=== PATIENT | female | born 1980 | race Caucasian/White ===

== ENCOUNTER → 2018-01-18 | Day surgery (SDC) | payer OTHER ==
[~2018-01-18] VITALS: Ht 165.1 cm; Wt 66.2 kg
[~2018-01-18] MED LIST: VITAMIN D2000 UNIT PO; VITAMIN D250000 UNIT PO
--- NOTE | 2018-01-18 11:05 | Operative Report ---
Operative/Inv Procedure Report Surgery Date: 01/18/18 Name of Procedure: Left knee arthroscopy and partial medial meniscectomy Pre-Operative Diagnosis: Left knee bucket-handle medial meniscus tear Post-Operative Diagnosis: Left knee bucket-handle medial meniscus tear Estimated Blood Loss: scant Surgeon/Gear Design Engineer: Chelsey Arredondo MD Anesthesia: laryngeal mask airway Implants: None Drains: None Specimens: None Tourniquet: 40min at 300mmHg Complications: None Condition: Stable Operative Indication: Gauri Siu is a 37-year-old female who presented to the orthopedic clinic with ongoing left medial knee pain. She under went an ACL reconstruction with medial meniscus repair approximately 5 years ago. She denies a new injury, however developed increased medial knee pain with catching, locking, and popping. Her knee intermittently swells and she has difficulty with ambulation and stairs. She was initially evaluated by her primary care doctor, who ordered x-rays and an MRI of the left knee, which showed a bucket-handle tear of the medial meniscus. Her ACL graft was intact. After discussing the risks, benefits, and alternatives to surgical intervention, Gauri has opted to proceed with left knee arthroscopy and partial medial meniscectomy. Operative/Procedure Note Note: Gauri Kathleen arrived at [facility] on 01/18/2018. She was met in the preoperative area, where her operative extremity was marked and her past medical history was reviewed. The patient was then taken into the operating room and placed supine on the operating room table. A time-out procedure was performed and the patient, the operative extremity, and the planned procedure were verified. The patient was induced under general anesthesia and IV cefazolin was administered for antibiotic prophylaxis. A nonsterile tourniquet was applied to the left upper thigh, and the left lower extremity was prepped and draped in the usual sterile fashion. The left leg was elevated and the tourniquet raised to 300mmHg. The knee was taken into flexion and a standard inferolateral portal was created using a #11 blade scalpel. The camera was introduced into the joint and the knee taken into extension. The patellofemoral joint was in good condition without cartilage wear. No loose bodies were noted in the medial or lateral gutters. The knee was taken in flexion and an anteromedial portal was created after localization with a spinal needle. A diagnostic knee arthroscopy revealed a bucket handle tear of the medial meniscus, with the fragment flipped anterior. The ACL graft was noted to be in good condition in the notch, with good tension. The knee was taken into the [id number] position to evaluate the lateral compartment. No meniscal tears or cartilage damage were noted. The knee was taken into extension with a valgus load. The medial meniscus tear was carefully trimmed using biters, and the bucket handle fragment removed. The meniscus was then carefully debrided down to a stable border using biters and a full-radius shaver. Once complete, the knee was again reevaluated to ensure no loose pieces of the meniscus remained. The camera was removed from the joint and any excess fluid evacuated. The portals were closed using #3-0 nylon suture. Local anesthetic was infiltrated in the surrounding soft tissues. The incisions were dressed with sterile xeroform and gauze, and secured with sterile webril and an LILY bandage. The patient was extubated and taken from the OR to the recovery room in stable condition.
== END ==
LOC: STS 00:42
DX: M23.204 Derangement of unspecified medial meniscus due to old tear or injury, left knee (principal); Z86.718 Personal history of other venous thrombosis and embolism; F17.200 Nicotine dependence, unspecified, uncomplicated
CPT/HCPCS: 81025; J0131; J0690; J1100; J2250; J2405